=== PATIENT | female | born 1995 | race African-American/Black ===

== ENCOUNTER 2019-07-29 00:29 | Inpatient (IN) ==
[2019-07-29] MEDS: LACTATED RINGERS 1,000 ML IV SCH ×2 (02:15→11:41)
[2019-07-29] MEDS ORDERED: MEPERIDINE 50 MG/1 ML VIAL IV ONE (02:30)
[2019-07-29] MEDS ORDERED: ONDANSETRON 4 MG/2 ML VIAL IV ONE (02:30)
[2019-07-29] MEDS ORDERED: MEPERIDINE 50 MG/1 ML VIAL ONE (02:51)
[2019-07-29] MEDS ORDERED: ONDANSETRON 4 MG/2 ML VIAL ONE (02:52)
[2019-07-29 05:23] LABS: Apearance,Urine Slightly Hazy (Clear); Urine Color Yellow (Yellow)
[2019-07-29 05:24] LABS: Glucose,Urine (UA) Negative (Negative); Ketones,Urine 5 mg/dL (Negative); Nitrite,Urine Negative (Negative); Protein,Urine 30 MG/DL; Urine Specific Gravity 1.025 (1.001-1.035)
[2019-07-29 05:25] LABS: Bilirubin,Urine Negative (Negative); Blood, Urine Small mg/dL (Negative); RBC,Urine 2 /HPF (0-4); Urine Urobilinogen < 2.0 EU/DL (0.2-1.0); WBC,Urine 5 /HPF (0-6)
[2019-07-29 05:26] LABS: Mucus,Urine Occasional /LPF (Occasional); Squamous Epithelial Cell,Urine Occasional /HPF (0-10)
[2019-07-29] MEDS ORDERED: LIDOCAINE 1% 50 ML VIAL MISC INJ ONE (07:36)
[2019-07-29] MEDS ORDERED: miSOPROStoL 200 MCG TABLET VAG PRN (07:36)
[2019-07-29] MEDS ORDERED: ONDANSETRON 4 MG/2 ML VIAL IV PRN ×2 (07:36→18:02)
[2019-07-29] MEDS ORDERED: MEPERIDINE 50 MG/1 ML VIAL IM PRN (07:36)
[2019-07-29] MEDS ORDERED: BUTORPHANOL 2 MG/ML VIAL IV PRN (07:36)
[2019-07-29] MEDS ORDERED: CARBOPROST TROMETHAMINE 250 MCG/ML AMP IM PRN (07:36)
[2019-07-29] MEDS ORDERED: LACTATED RINGERS 1,000 ML IV SCH ×3 (08:00→18:30)
[2019-07-29] MEDS ORDERED: CITRIC ACID/SODIUM CITRATE 30 ML UDCUP PO ONE (08:07)
[2019-07-29] MEDS ORDERED: ePHEDrine 50 MG/ML AMP IV PRN (08:07)
[2019-07-29] MEDS ORDERED: diphenhydrAMINE 50 MG/1 ML VIAL IV PRN ×2 (08:07)
[2019-07-29] MEDS ORDERED: hydrOXYzine HCL 25 MG/1 ML VIAL IM PRN (08:07)
[2019-07-29] MEDS ORDERED: LACTATED RINGERS 1,000 ML IV ONE (08:07)
[2019-07-29] MEDS ORDERED: PROMETHAZINE 25 MG/1 ML VIAL IM ONE (08:07)
[2019-07-29] MEDS ORDERED: FAMOTIDINE 20 MG/2 ML VIAL IV ONE (08:07)
[2019-07-29] MEDS ORDERED: NALOXONE 0.4 MG/ML VIAL IV PRN (08:07)
[2019-07-29] MEDS: CLINDAMYCIN INJ 900 MG in PREMIX 1 EACH IV SCH ×2 (08:14→16:12)
[2019-07-29 08:17] LABS: Basophils % 0.3 % (0.0-0.8); Eosinophils # 0.1 10*3/uL (0.0-0.87); Eosinophils % 0.9 % (0.00-10.9); Hematocrit 37.7 VOL% (35.7-47.0); Hemoglobin 11.7 GM/DL (12.0-16.0); Immature Granulocytes % 0.9 %; Immature Granulocytes Absolute 0.12 #; Lymphocytes # 1.8 10*3/uL (1.4-4.0); Lymphocytes % 13.1 % (21.3-54.2); Mean Platelet Volume 10.9 FL (9.6-12.0); Monocytes % 5.8 % (1.7-12.7); Platelet Count 322 T/CUMM (130-400); Red Blood Count 4.54 MC/CUMM (3.8-5.5); Red Cell Distribution Width 14.6 % (9.3-17.3)
[2019-07-29] MEDS ORDERED: fentaNYL 2 MCG/ROPIV 0.2% EPID 100 ML EPIDURAL SCH (08:30)
[2019-07-29 08:42] LABS: Alanine Aminotransferase 32 U/L (13-56); Albumin 2.8 G/DL (3.4-5.0); Alkaline Phosphatase 206 U/L (45-117); Aspartate Amino Transferase 18 U/L (0-37); Bilirubin,Total < 0.39 MG/DL (0.2-1.0); Blood Urea Nitrogen 6 MG/DL (7-18); Estimated Glom Filtration Rate 159 ML/MIN; Glucose 84 MG/DL (74-106); Osmolality,Calculated 269.8 MOS/KG (273-304); Total Protein 7.5 G/DL (6.4-8.3)
[2019-07-29] MEDS ORDERED: OXYTOCIN/LR 20 UNIT/1,000 ML BAG IV SCH (10:00)
[2019-07-29 10:29] LABS: Apearance,Urine CLEAR (Clear); Bilirubin,Urine Negative (Negative); Blood, Urine Negative (Negative); Glucose,Urine (UA) Negative (Negative); Ketones,Urine 20 mg/dL (Negative); Mucus,Urine Occasional /LPF (Occasional); Nitrite,Urine Negative (Negative); Protein,Urine Negative; Squamous Epithelial Cell,Urine Occasional /HPF (0-10); Urine Color Straw (Yellow); Urine Specific Gravity 1.008 (1.001-1.035); Urine Urobilinogen < 2.0 EU/DL (0.2-1.0); WBC,Urine 1 /HPF (0-6)
[2019-07-29] MEDS ORDERED: OXYTOCIN 10 UNIT/ML VIAL IM ONE (16:49)
[2019-07-29] MEDS ORDERED: OXYTOCIN/LR 30 UNIT/1,000 ML BAG IV ONE (16:49)
[2019-07-29] MEDS ORDERED: METHYLERGONOVINE 0.2 MG/1 ML AMP ONE (16:53)
[2019-07-29] MEDS ORDERED: MORPHINE 10 MG/10 ML VIAL ONE (16:56)
[2019-07-29] MEDS ORDERED: LIDOCAINE MPF 2% /EPI 20 ML VIAL ONE (16:56)
[2019-07-29] MEDS ORDERED: ACETAMINOPHEN 325 MG TABLET PO PRN (18:02)
[2019-07-29] MEDS ORDERED: SIMETHICONE CHEW 80 MG TABLET PO PRN (18:02)
[2019-07-29] MEDS ORDERED: MAGNESIUM HYDROXIDE SUSP 30 ML UDCUP PO PRN (18:02)
[2019-07-29] MEDS ORDERED: OXYTOCIN/LR 20 UNIT/1,000 ML BAG IV ONE (18:02)
[2019-07-29] MEDS ORDERED: RHO(D) IMMUNE GLOBULIN 300 MCG SYRINGE IM ONE (18:02)
[2019-07-29] MEDS ORDERED: IBUPROFEN 800 MG TABLET PO PRN (18:02)
[2019-07-29] MEDS ORDERED: MIDAZOLAM 2 MG/2 ML VIAL ONE (18:07)
[2019-07-29 18:31] LABS: Cord Arterial Blood HCO3 23.9 MMOL/L
[2019-07-29 18:35] LABS: Cord Venous Blood PCO2 42.7 MMHG
[2019-07-29 18:36] LABS: Cord Venous Blood PO2 18.4
[2019-07-30] MEDS: DOCUSATE SODIUM 100 MG CAPSULE PO SCH ×3 (00:03→21:28)
[2019-07-30] MEDS: CLINDAMYCIN INJ 900 MG in PREMIX 1 EACH IV SCH ×2 (00:30→10:06)
[2019-07-30 05:21] LABS: Basophils % 0.2 % (0.0-0.8); Eosinophils % 0.1 % (0.00-10.9); Hematocrit 30.6 VOL% (35.7-47.0); Hemoglobin 9.8 GM/DL (12.0-16.0); Immature Granulocytes % 0.8 %; Immature Granulocytes Absolute 0.15 #; Lymphocytes # 1.2 10*3/uL (1.4-4.0); Lymphocytes % 6.6 % (21.3-54.2); Mean Corpuscular Volume 81.6 FL (87-102); Mean Platelet Volume 10.7 FL (9.6-12.0); Monocytes % 5.5 % (1.7-12.7); Neutrophils % 86.8 % (38.7-73.9); Platelet Count 262 T/CUMM (130-400); Red Blood Count 3.75 MC/CUMM (3.8-5.5); Red Cell Distribution Width 14.3 % (9.3-17.3); White Blood Count 18.6 T/CUMM (4-12)
[2019-07-30] MEDS: MULTIVITAMIN (PRENATAL) TABLET PO SCH (10:22)
[2019-07-31 09:25] VITALS: BP 120/61
[2019-07-31] MEDS ORDERED: BISACODYL 10 MG SUPP RECTAL ONE (09:28)
[2019-07-31] MEDS: DOCUSATE SODIUM 100 MG CAPSULE PO SCH (09:42)
[2019-07-31] MEDS: MULTIVITAMIN (PRENATAL) TABLET PO SCH (09:42)
[2019-07-31] MEDS ORDERED: DIPH/TET/ACEL PERT BOOSTER VACCINE 0.5 ML VIAL IM ONE (12:48)
[2019-07-31] MEDS ORDERED: INFLUENZA VIRUS VACCINE 0.5 ML SYRINGE IM ONE (12:49)
== END 2019-07-31 13:55 | disposition home or self-care (01) | DRG 788 ==
LOC: N.LDOUT 00:29 → N.LD 00:30 → N.OB 22:30
PROVIDERS: ADMIT Obstetrics & Gynecology; ATTEND Obstetrics & Gynecology
PROC: LDCSECT (ICD-10-PCS; 2019-07-29 17:00)